=== PATIENT | male | born 1945 | race Caucasian/White ===

== ENCOUNTER 2021-02-17 15:58 | Emergency (ER) | payer MEDICARE, SELFPAY ==
[2021-02-17 16:14] VITALS: BP 140/70; PULSE 87; RESP 16; O2SAT 97; BMI 24.4
--- NOTE | 2021-02-17 16:17 | XR_ITS ---
PROCEDURE INFORMATION: Exam: XR Chest Exam date and time: 02/17/2021 4:17 PM Age: 75 years old Clinical indication: Cough TECHNIQUE: Imaging protocol: XR of the chest. Portable AP and lateral exam 4:56 p.m.. Three images received. Views: 2 views. COMPARISON: No relevant prior studies available. FINDINGS: Lungs: There are prominent patchy bilateral pulmonary airspace opacities which appear greatest in the right lower lobe and lateral periphery of the left lower lobe, correlate for pneumonia. Mild left pulmonary volume loss with slight elevation of the left diaphragm. Pleural spaces: Unremarkable as visualized. No significant pleural effusion. No pneumothorax. Heart/Mediastinum: Mildly enlarged cardiac silhouette, accentuated by portable AP technique. Vasculature: Calcified plaque in the aortic arch. Bones/joints: Spinal degenerative changes, multilevel disc disease and spondylosis. Mild chronic appearing compression deformities in the mid and lower thoracic spine. IMPRESSION: 1. Prominent patchy bilateral pulmonary airspace disease greatest in the lower and peripheral lungs, correlate for pneumonia. Less likely in this distribution would be pulmonary edema. 2. Additional nonemergency and chronic findings as above.
[2021-02-17 16:24] VITALS: BP 140/70; PULSE 87; RESP 16; TEMP 38.5; O2SAT 97; BMI 24.3
--- NOTE | 2021-02-17 17:23 | HMH.EDUTC ---
[facility] [place] Disposition Clinical Impression: Viral pneumonia, Viral syndrome Disposition: Still a Patient Condition on Discharge: Fair Instructions: Pneumonia-Adult Referrals: Tarik Quintanilla MD [Primary Care Provider] - Medical Decision Making - Medical Records Medical records reviewed: No: I reviewed the patient's medical records. - Emiliano Inquiry Pt receiving controlled substance: No Vital Signs: 02/17/21 16:14 02/17/21 16:24 Temperature 101.3 F H Temperature Source Oral Pulse Rate [Right] 87 87 Respiratory Rate 16 16 Blood Pressure [Right Arm] 140/70 140/70 Blood Pressure Mean [Right Arm] 93 93 Blood Pressure Source [Right Arm] Automatic Cuff Blood Pressure Position [Right Arm] Sitting 02 Sat by Pulse Oximetry 97 97 Oxygen Delivery Method Room Air Orders (Tests/Meds): ED MEDICATIONS Discontinued Medications Generic Name Dose Route Start Last Admin Trade Name Freq PRN Reason Stop Dose Admin Acetaminophen 975 mg 02/17/21 16:34 02/17/21 16:34 Acetaminophen 325mg Tab PO 02/17/21 16:35 975 mg ONCE ONE Administration ORDERS Category Date Time Status XR chest 2V Stat Exams 02/17/21 16:17 Taken Rapid PCR Covid and Flu A/B Stat Lab 02/17/21 17:14 Ordered Medical Decision Narrative: He was transferred to the ER per family request and because he has pneumonia. He is very weak. He normally walks, but he has been unable to walk to take care of himself since getting this sick. [facility] [place] HPI - General Stated complaint: fever weakness covid expsosure Time Seen by Provider: 02/17/21 17:23 Mode of Arrival: Wheelchair Source of Information: Relative Limitations: No Limitations Description of Symptoms (Recalled from Triage Doc. by RN): family member states pt has been running a fever, weak, loss of appetite and difficulty sleeping x4 days. direct exposure to covid. HEENT Symptoms (Recalled from RN notes): No Resp Symptoms (Recalled from RN notes): No Skin Symptoms (Recalled from RN notes): No MS Symptoms (Recalled from RN notes): No Functional Status (Recalled from RN notes): fever, loss of appetite and weakness - History of Present Illness Provider Complaint: His states that he has been sick for the past 2 weeks. His has had covid-19 so they assumed he had it too, but he hasn't been tested until he arrived here today. HE has a history of Parkingson's Disease. He has been running a fever up to 101.5 at home off and on for the past 10 days approx. - Related Data Home Medications Medication Instructions Recorded Confirmed Aspirin [Aspir 81] 81 mg PO DAILY 09/28/18 09/28/18 Glimepiride [Amaryl] 2 mg PO DAILY 09/28/18 09/28/18 Metformin HCl [Fortamet] 500 mg PO DAILY 09/28/18 09/28/18 Metoprolol Succinate [Toprol XL 150 mg PO DAILY 09/28/18 09/28/18 100mg tablet] Rosuvastatin Calcium [Crestor] 20 mg PO DAILY 09/28/18 09/28/18 dilTIAZem HCL [Cardizem ER 240mg 240 mg PO DAILY 09/28/18 09/28/18 Capsule] lisinopriL [Lisinopril 10mg Tab] 10 mg PO DAILY 09/28/18 09/28/18 Allergies Allergy/AdvReac Type Severity Reaction Status Date / Time No Known Allergies Allergy Verified 09/28/18 13:41 - Worker's Comp Is this a Worker's Comp case?: No [facility] History - Hepatitis A Screen Drug use history?: No High risk sexual behaviors?: No History of sexually transmitted infection?: No Currently employed?: No Childcare worker?: No Do you have indoor plumbing?: Yes Do you have electricity?: Yes Attestation statement:: This patient has been screened for Hepatitis A risk factors. I have reviewed the patient's past medical history: Yes Medical History: Reports:: Diabetes Mellitus Type 2 (MEDS), Hyperlipidemia, Hypertension Denies:: Diabetes Mellitus Type 1, Internal Pacemaker, Lung Disease, Seizures Other Medical History: Reports: Other Comment: Parkinson's, Obesity Laterality Cases: Right: Total Hip Replacement Other Surgeries: Yes: Colonoscopy. No: Pacema
[2021-02-17 18:10] LABS: Influenza A, PCR Not Detected (NotDetected); Influenza B, PCR Not Detected (NotDetected)
[2021-02-17 18:14] VITALS: BP 126/81; PULSE 76; RESP 16; O2SAT 96
[2021-02-17 18:27] LABS: Basophils % 0.5 % (0.1-2.0); Eosinophils % 0.1 % (0.1-12.0); Hematocrit 39.4 % (42.0-52.0); Lymphocytes # 0.3 K/mm3 (0.7-4.5); Mean Corpuscular HGB Conc 33.1 g/dL (31.8-35.4); Mean Corpuscular Volume 99.8 fl (80-94); Mean Platelet Volume 9.1 fl (7.4-10.4); Monocytes # 0.4 K/mm3 (0.1-1.0); Monocytes % 6.6 % (1.7-9.3); Neutrophils # 4.6 K/mm3 (1.8-7.8); Neutrophils % 86.7 % (37.0-80.0); Platelet Count 150 K/mm3 (142-424); Red Blood Count 3.94 M/mm3 (4.60-6.20); Red Cell Distribution Width 13.7 % (11.5-17.5); White Blood Count 5.3 K/mm3 (4.8-10.8)
[2021-02-17 18:31] LABS: MANUAL DIFFERENTIAL MANUAL DIFFERENTIAL (MANUAL DIFF)
[2021-02-17 18:32] LABS: Alanine Aminotransferase 12 U/L (12-78); Albumin Level 3.6 g/dl (3.5-5.0); Albumin/Globulin Ratio 1.1 (1.1-1.8); Alkaline Phosphatase 62 U/L (38-126); Anion Gap 12.3 mEq/L (5-15); Aspartate Amino Transferase 42 U/L (17-59); Bilirubin,Total 0.8 mg/dl (0.2-1.3); Blood Urea Nitrogen 31 mg/dl (9-20); Calcium 8.6 mg/dl (8.4-10.2); Carbon Dioxide 28 mmol/L (22.0-30.0); Chloride 106 mmol/L (98-107); Creatinine Clearance Estimated 40 mL/min (50-200); Estimated Glomerular Filt Rate 37 ml/min (>60); GFR (African American) 44 ML/MIN (>60); Globulin 3.3 g/dL (1.3-3.2); Glucose 61 mg/dl (74-100); Potassium 4.3 mmoL/L (3.5-5.1); Sodium 142 mmol/L (136-145); Total Protein,Serum 6.9 g/dl (6.3-8.2)
[2021-02-17 18:47] LABS: Coronavirus 19, PCR Detected (NotDetected)
[2021-02-17 19:02] LABS: Lymphocytes % 6 % (10-50); Monocytes % 6 % (2-9); Neutrophils % 88 % (42-76); Platelet Estimate Normal; RBC Morphology Normal; Total Cells Counted 100
[2021-02-17 19:06] VITALS: BP 118/63; PULSE 58; RESP 16; O2SAT 96
--- NOTE | 2021-02-17 19:08 | HMH.EDURI ---
ED Disposition Clinical Impression: Viral pneumonia, Viral syndrome Disposition: Home, Self-Care Condition on Discharge: Good Instructions: Pneumonia-Adult Additional Instructions: Please follow-up with your primary care physician in 2 to 3 days for further management. You tested positive for COVID 19. You have also been prescribed doxycycline to be taken as prescribed, however symptoms are likely related to COVID pneumonia. Please return back to the emergency department for any concerning symptoms such as difficulty breathing, chest pain, lethargy, inability to eat and drink or any other concerning symptoms. Prescriptions: Doxycycline Hyclate [Doxycycline 150mg Tablet] 150 mg PO DAILY #7 tab Referrals: Tarik Quintanilla MD [Primary Care Provider] - Time of Disposition: 19:55 - Critical Care Critical Care Time: No Attestation: On 02/17/21, the high probability of a clinically significant, sudden or life threatening deterioration of the following system(s) required my full and direct attention, intervention and personal management. The time I documented below is in addition to time spent performing reported procedures but includes the following listed in this critical care notation. Medical Decision Making - Emiliano Inquiry Pt receiving controlled substance: No Vital Signs: 02/17/21 16:14 02/17/21 16:24 02/17/21 18:14 Temperature 101.3 F H Temperature Source Oral Pulse Rate 76 Pulse Rate [Right] 87 87 Respiratory Rate 16 16 16 Blood Pressure 126/81 Blood Pressure [Right Arm] 140/70 140/70 Blood Pressure Mean [Right Arm] 93 93 Blood Pressure Source Automatic Cuff Blood Pressure Source [Right Arm] Automatic Cuff Blood Pressure Position Sitting Blood Pressure Position [Right Arm] Sitting 02 Sat by Pulse Oximetry 97 97 96 Oxygen Delivery Method Room Air Room Air 02/17/21 19:06 02/17/21 19:31 Temperature 98 F Temperature Source Oral Pulse Rate 58 L 72 Pulse Rate [Right] Respiratory Rate 16 16 Blood Pressure 118/63 120/71 Blood Pressure [Right Arm] Blood Pressure Mean [Right Arm] Blood Pressure Source Automatic Cuff Blood Pressure Source [Right Arm] Blood Pressure Position Sitting Blood Pressure Position [Right Arm] 02 Sat by Pulse Oximetry 96 Oxygen Delivery Method Room Air Room Air - Lab Data Lab Results 02/17/21 16:32: SARS-CoV-2 (PCR) Detected A, Influenza A Untype (PCR) Not detected, Influenza Type B (PCR) Not detected 02/17/21 18:12: WBC 5.3, RBC 3.94 L, Hgb 13.0 L, Hct 39.4 L, MCV 99.8 H, MCH 33.0 H, MCHC 33.1, RDW 13.7, Plt Count 150, MPV 9.1, Neut % (Auto) 86.7 H, Lymph % (Auto) 6.0 L, [place] % (Auto) 6.6, Eos % (Auto) 0.1, Baso % (Auto) 0.5, Neut # (Auto) 4.6, Lymph # (Auto) 0.3 L, [place] # (Auto) 0.4, Eos # (Auto) 0.0, Baso # (Auto) 0.0, Total Counted 100, Neutrophils % (Manual) 88 H, Lymphocytes % (Manual) 6 L, Monocytes % (Manual) 6, Platelet Estimate Normal, RBC Morphology Normal 02/17/21 18:12: Sodium 142, Potassium 4.3, Chloride 106, Carbon Dioxide 28, Anion Gap 12.3, BUN 31 H, Creatinine 1.80 H, Estimated Creat Clear 40, Estimated GFR 37 L, Est GFR ( Amer) 44 L, Glucose 61 L, Calcium 8.6, Total Bilirubin 0.8, AST 42, ALT 12, Alkaline Phosphatase 62, Total Protein 6.9, Albumin 3.6, Globulin 3.3 H, Albumin/Globulin Ratio 1.1 Result diagrams: 02/17/21 18:12 02/17/21 18:12 Orders (Tests/Meds): ED MEDICATIONS Discontinued Medications Generic Name Dose Route Start Last Admin Trade Name Freq PRN Reason Stop Dose Admin Acetaminophen 975 mg 02/17/21 16:34 02/17/21 16:34 Acetaminophen 325mg Tab PO 02/17/21 16:35 975 mg ONCE ONE Administration Medical Decision Narrative: Mr. Marin is a 75 year old male presenting from [facility] clinic for COVID exposure. Patient is febrile but hemodynamically stable on arrival, satting 94% on RA per baseline. Patient denies dyspnea, chest pain, lightheadness. Patient reports other than cough, co
[2021-02-17 19:31] VITALS: BP 120/71; PULSE 72; RESP 16; TEMP 36.6; O2SAT 96
== END 2021-02-17 19:39 | disposition home or self-care (01) ==
LOC: UTC 16:24 → ER 17:38
PROVIDERS: Nurse Practitioner Family; Emergency Provider Student in an Organized Health Care Education/Training Program; PCP Family Medicine
DX: J12.9 Viral pneumonia, unspecified (principal); B34.9 Viral infection, unspecified; E11.9 Type 2 diabetes mellitus without complications; E78.5 Hyperlipidemia, unspecified; I10 Essential (primary) hypertension; Z79.899 Other long term (current) drug therapy
CPT/HCPCS: 36415; 71046; 80053; 85007; 85025; 99282; C9803; U0003; U0005

== ENCOUNTER 2022-05-16 23:12 | Observation (INO) | payer MEDICARE, SELFPAY ==
[2022-05-16 23:22] LABS: POC Glucose,Bedside 78 (70-110)
[2022-05-16 23:29] VITALS: BP 143/74; PULSE 60; RESP 18; TEMP 36.8; O2SAT 97; BMI 29.8
[2022-05-16 23:31] VITALS: BP 143/71; PULSE 60; O2SAT 98
[2022-05-16 23:44] LABS: Basophils # 0.1 K/mm3 (0-0.2); Basophils % 0.7 % (0.1-2.0); Eosinophils # 0.1 K/mm3 (0.0-0.4); Eosinophils % 1.3 % (0.1-12.0); Hematocrit 43.7 % (42.0-52.0); Hemoglobin 14.2 g/dL (14.1-18.0); Lymphocytes # 0.7 K/mm3 (0.7-4.5); Lymphocytes % 8.6 % (10-50); Mean Corpuscular HGB Conc 32.5 g/dL (31.8-35.4); Mean Corpuscular Hemoglobin 32.8 pg (27.0-31.2); Mean Corpuscular Volume 100.8 fl (80-94); Mean Platelet Volume 7.6 fl (7.4-10.4); Monocytes # 0.9 K/mm3 (0.1-1.0); Monocytes % 11.6 % (1.7-9.3); Neutrophils % 77.9 % (37.0-80.0); Platelet Count 189 K/mm3 (142-424); Red Blood Count 4.34 M/mm3 (4.60-6.20); White Blood Count 7.8 K/mm3 (4.8-10.8)
[2022-05-16 23:50] LABS: Alanine Aminotransferase 9 U/L (12-78); Albumin Level 3.9 g/dl (3.5-5.0); Albumin/Globulin Ratio 1.3 (1.1-1.8); Alkaline Phosphatase 64 U/L (38-126); Anion Gap 7.7 mEq/L (5-15); Aspartate Amino Transferase 23 U/L (17-59); Bilirubin,Total 0.6 mg/dl (0.2-1.3); Blood Urea Nitrogen 30 mg/dl (9-20); Calcium 8.1 mg/dl (8.4-10.2); Carbon Dioxide 29 mmol/L (22.0-30.0); Chloride 108 mmol/L (98-107); Creatinine Clearance Estimated 61 mL/min (50-200); Estimated Glomerular Filt Rate 49 ml/min (>60); GFR (African American) 59 ML/MIN (>60); Globulin 3.1 g/dL (1.3-3.2); Glucose 63 mg/dl (74-100); Potassium 3.7 mmoL/L (3.5-5.1); Sodium 141 mmol/L (136-145)
[2022-05-16 23:55] LABS: POC Glucose,Bedside 70 (70-110)
[2022-05-16 23:55] LABS: Microscopic, Urine URINE MICROSCOPIC (MICROSCOPIC)
--- NOTE | 2022-05-16 23:55 | HMH.EDRECH ---
Discharge Plan Disposition Chief Complaint: Recheck/Abnormal Lab/Rx Clinical Impressions Clinical Impression: Hypoglycemia associated with type 2 diabetes mellitus, Parkinson disease, COVID-19, Chronic renal insufficiency Discharge ED Provider: Gilberto (ED)Yair Recheck HPI General Chief Complaint: Recheck/Abnormal Lab/Rx Stated Complaint: Hypoglycemia Time Seen by Provider: 05/16/22 23:56 Mode of Arrival: EMS Source of Information: Patient, Spouse, EMS and Medical Record Limitations: No Limitations Description of Symptoms (Recalled from ER Triage Doc. by RN): Pt arrives via ems. Per EMS, upon arrival pt was lethargic with a blood glucose of 37, given 200ml of d10, glucose level upon recheck was 189. Per patients , he has had covid (quarantine will be over tomorrow) and has not had an appetite since the diagnosis. Pt became confused tonight at approx 2130 after using the restroom and needed his grandsons help getting from the toilet to his bed so his grandson essentially had to carry him because his legs were weak. Per , they havent had a functioning glucometer in several weeks so they have not been monitoring it. states that he also has eaten less than normal today. History of Present Illness HPI narrative: pt with episode of change in mental status and had low glucose - pt is diabetic and has been using meds but has dec po intake as has covid-19 - also has weakness and parkinson Initial visit (ago): hour(s) Related Data Home Medications Medication Instructions Recorded Confirmed aspirin 81 mg tablet,delayed 81 mg PO DAILY HEALTH 09/28/18 05/16/22 release diltiazem HCl 240 mg 240 mg PO DAILY HEART. 09/28/18 05/16/22 capsule,extended release 24 hr glimepiride 2 mg tablet 2 mg PO DAILY SUGAR 09/28/18 05/16/22 lisinopril 10 mg tablet 10 mg PO DAILY BP 09/28/18 05/16/22 metformin 500 mg tablet,extended 500 mg PO DAILY SUGAR 09/28/18 05/16/22 release 24hr metoprolol succinate 100 mg 150 mg PO DAILY BP 09/28/18 05/16/22 tablet,extended release 24 hr rosuvastatin 20 mg tablet 20 mg PO DAILY Cholesterol 09/28/18 05/16/22 carbidopa 25 mg-levodopa 250 mg 1 tab PO TID parkinsons tremor 05/16/22 05/16/22 tablet quetiapine 25 mg tablet 25 mg PO HS Insomnia 05/16/22 05/16/22 Allergies Allergy/AdvReac Type Severity Reaction Status Date / Time No Known Allergies Allergy Verified 09/28/18 13:41 [facility] Disclaimer: The information contained in this section may have been updated after the patient was seen, as this information can be updated by other users. Social History Smoking Status: Never smoker alcohol intake: never substance use type: unknown current occupational status: other (unknown) Travel in the last 8 weeks: None caffeine: Yes ROS Obtained: Yes All systems reviewed & no additional complaints except as documented Physical Exam General General appearance: alert Head Head exam: normocephalic Eye Eye exam: Present PERRL and EOMI; Absent scleral icterus ENT ENT exam: Present mucous membranes dry Neck Neck exam: Present trachea midline Respiratory Respiratory exam: Present other (dec bs bilat ); Absent respiratory distress Cardiovascular Cardiovascular exam: Present regular rate, systolic murmur and +S4 Abdominal Exam Abdominal exam: Present soft Extremities Exam Extremities exam: Absent joint swelling Neurological Exam Neurological exam: Present alert and CN II-XII intact Skin Skin exam: Absent rash Medical Decision Making Medical Records Medical records reviewed: Yes I reviewed the patient's medical records. Emiliano Inquiry Pt receiving controlled substance: No Vital Signs: 05/16/22 23:29 05/16/22 23:31 05/17/22 00:01 Temperature 98.2 F Temperature Source Oral Pulse Rate 60 60 Pulse Rate [Apical] 60 Respiratory Rate 18 Blood Pressure 143/71 H 133/81 Blood Pressure [Right Arm] 143/74 H Blood Pressure Mean [Right Arm] 97 Blood Press
[2022-05-16 23:56] LABS: Appearance,Urine CLEAR (Clear); Bilirubin,Urine Negative (Negative); Blood, Urine TRACE-I (Negative); Color,Urine YELLOW (Yellow); Glucose,Urine (UA) Negative (Negative); Ketones,Urine Negative (Negative); Leukocyte Esterase,Urine Negative (Negative); Nitrate,Urine Negative (Negative); Protein,Urine 2+ (Negative); Specific Gravity, Urine >= 1.030 (1.005-1.030)
--- NOTE | 2022-05-16 23:57 | PC.NURSE ---
Patients blood glucose upon recheck was 70. Patient was given 4 peanut butter crackers and an orange juice upon arrival to ER.
[2022-05-17] VITALS (9 sets, daily range): BP systolic 120–170; BP diastolic 67–81; PULSE 57–85; RESP 16–21; TEMP 36.6–37.1; O2SAT 93–99; BMI 24.0
[2022-05-17 00:05] LABS: Influenza A, PCR Not Detected (NotDetected); Influenza B, PCR Not Detected (NotDetected)
[2022-05-17 00:13] LABS: Hemoglobin A1C 5.9 % (4.0-6.0)
[2022-05-17 00:22] LABS: RBC,Urine Occasional #/hpf (0-3); Squamous Epithelial Cell,Urine Occasional #/hpf (0-5); WBC,Urine Occasional #/hpf (0-3)
--- NOTE | 2022-05-17 00:26 | PC.NURSE ---
Patient was given a pepsi per his request to increase blood glucose. Patient finished 8oz of regular pepsi at approx 0015.
[2022-05-17 00:30] LABS: POC Glucose,Bedside 69 (70-110)
[2022-05-17 00:57] LABS: Coronavirus 19, PCR Detected (NotDetected)
--- NOTE | 2022-05-17 01:29 | PC.NURSE ---
Patients blood glucose rechecked. fsbg 80. Patient remains alert oriented and stable. at bedside.
[2022-05-17 01:35] LABS: POC Glucose,Bedside 80 (70-110)
[2022-05-17 02:06] LABS: POC Glucose,Bedside 71 (70-110)
--- NOTE | 2022-05-17 02:06 | PC.NURSE ---
Dr. Macias s/w Dr. Noel for admission. teaching supervisor notified for bed assignment.
--- NOTE | 2022-05-17 02:14 | XR_ITS ---
PROCEDURE INFORMATION: Exam: XR Chest Exam date and time: 05/17/2022 2:34 AM Age: 76 years old Clinical indication: Condition or disease; Lung condition and disease; Pneumonia; Additional info: Covid+ TECHNIQUE: Imaging protocol: Radiologic exam of the chest. Views: 1 view. COMPARISON: CR XR CHEST 2V 02/17/2021 4:54 PM FINDINGS: Lungs: Minor linear and patchy opacities in the left lower lobe are improved since prior exam. The lungs appear otherwise clear. No focal areas of consolidation. Pleural spaces: No pleural effusions or appreciable adenopathy. Negative for pneumothorax. Heart/Mediastinum: Cardiac silhouette and pulmonary vasculature are within range of normal. The aortic arch demonstrates mild to moderate atherosclerotic calcification. Bones/joints: There is no evidence of acute fracture. The thoracic spine demonstrates mild degenerative changes at multiple levels. Degenerative changes are incompletely visualized involving the shoulders. Decrease in the acromial humeral interval bilaterally raises the question of rotator cuff pathology. IMPRESSION: Minor linear and patchy opacities in the left lower lobe are improved since prior exam. The lungs appear otherwise clear.
--- NOTE | 2022-05-17 02:16 | PC.NURSE ---
placing bridge floor orders for pt @ this time.
--- NOTE | 2022-05-17 02:22 | PC.NURSE ---
called report to Elizabeth HART
--- NOTE | 2022-05-17 02:28 | PC.NURSE ---
Elizabeth RN is checked on changing pt's room to a negative pressure/covid room
--- NOTE | 2022-05-17 02:38 | PC.NURSE ---
med/surg here to transport pt to 2nd nh via wheelchair
--- NOTE | 2022-05-17 02:43 | PC.NURSE ---
PT ARRIVED TO FLOOR AT THIS TIME
[2022-05-17 06:21] LABS: POC Glucose,Bedside 50 (70-110)
[2022-05-17 06:21] LABS: POC Glucose,Bedside 58 (70-110)
[2022-05-17 06:21] LABS: POC Glucose,Bedside 62 (70-110)
[2022-05-17 06:56] LABS: Basophils % 0.3 % (0.1-2.0); Eosinophils # 0.1 K/mm3 (0.0-0.4); Eosinophils % 2.1 % (0.1-12.0); Hematocrit 39.4 % (42.0-52.0); Hemoglobin 12.8 g/dL (14.1-18.0); Lymphocytes % 15.9 % (10-50); Mean Corpuscular HGB Conc 32.4 g/dL (31.8-35.4); Mean Corpuscular Volume 101.7 fl (80-94); Mean Platelet Volume 7.4 fl (7.4-10.4); Monocytes # 0.8 K/mm3 (0.1-1.0); Monocytes % 12.8 % (1.7-9.3); Neutrophils # 4.3 K/mm3 (1.8-7.8); Neutrophils % 68.9 % (37.0-80.0); Platelet Count 164 K/mm3 (142-424); Red Blood Count 3.87 M/mm3 (4.60-6.20); Red Cell Distribution Width 13.8 % (11.5-17.5); White Blood Count 6.3 K/mm3 (4.8-10.8)
[2022-05-17 06:59] LABS: Chloride 109 mmol/L (98-107)
[2022-05-17 07:00] LABS: Potassium 4.2 mmoL/L (3.5-5.1); Sodium 142 mmol/L (136-145)
[2022-05-17 07:03] LABS: Anion Gap 9.2 mEq/L (5-15); Blood Urea Nitrogen 28 mg/dl (9-20); Carbon Dioxide 28 mmol/L (22.0-30.0); Creatinine Clearance Estimated 53 mL/min (50-200); Estimated Glomerular Filt Rate 53 ml/min (>60); GFR (African American) 65 ML/MIN (>60); Glucose 53 mg/dl (74-100)
--- NOTE | 2022-05-17 07:44 | HMH.PHAINT1 ---
Pharmacy Intervention Comments: MEDICATION RECONCILIATION COMPLETED ON PATIENT USING EXTERNAL FILL HISTORY FROM PHARMACY. -VISHAL GILLETTE, [place]
--- NOTE | 2022-05-17 08:02 | EXP.HP ---
History of Present Illness *Admission Date: 06/13/22 *Reason for visit:: Hypoglycemia; COVID *History of present illness: Mr. Pedroza is a 76-year-old male with a history of hypertension, PSVT, diabetes, chronic kidney disease, hyperlipidemia and Parkinson's disease who began feeling ill last week. He had a home positive COVID test on 05/13/2022. He did call the office of [facility] yesterday and water Paxlovid. He did not start this medicine. According to the he has not had an appetite since last week. He has been eating much less and drinking poorly. He became confused. They had no means of testing his blood sugar at home. He was unable to get up from the toilet on his own and essentially had to be carried to bed by his grandson because his legs were too weak to walk. He has been taking his diabetes medicine which includes glipizide 2 mg daily and metformin 500 mg daily. EMS was called and blood sugar was found to be 37. He was given 200 mL of D10 W with blood sugar recheck at 189. He was evaluated in the emergency room and then admitted for further evaluation and treatment and monitoring of his blood sugar. Repeat blood sugar was 78, BUN was 30 with a creatinine of 1.4. A1c was noted to be 5.9. He did test positive for COVID. He did have a chest x-ray which showed moderate lineal and patchy opacities in the left lower lobe improved since prior exam on 02/17/2021. The lungs appeared otherwise clear. Patient states he arrived to his room around 2:30 AM. He has slept little. Blood sugars remain low at 71, 50, 62, and 58,. He is on D5 one half normal saline at 100 an hour at present. He denies any pain or shortness of breath. He is hungry and is eating his breakfast. [facility] Disclaimer: The information contained in this section may have been updated after the patient was seen, as this information can be updated by other users. Medical History (Updated 05/17/22 @ 08:34 by Ronn Noel MD) Chronic renal insufficiency Diabetes Hyperlipidemia Hypertension Insomnia Parkinsons disease Stage 3a chronic kidney disease (CKD) Viral pneumonia Viral syndrome Surgical History (Updated 05/17/22 @ 03:50 by Elizabeth Fisher RN) Hip joint replacement status Family History (Updated 05/17/22 @ 03:50 by Elizabeth Fisher RN) Colon cancer Diabetes Social History (Updated 05/17/22 @ 03:51 by Elizabeth Fisher RN) Smoking Status: Never smoker alcohol intake: never substance use type: unknown current occupational status: other (unknown) Travel in the last 8 weeks: None caffeine: Yes Review of Systems Constitutional Constitutional: Denies fever(s), Denies frequent falls, Denies headache(s) and Reports poor appetite Eyes Eyes: Denies change in vision ENT Ears, Nose, Mouth, and Throat: Denies otalgia, Denies headache(s) and Denies sore throat *Cardiovascular Cardiovascular: Denies chest pain and Denies dyspnea *Respiratory Respiratory: Reports cough and Denies dyspnea *Gastrointestinal Gastrointestinal: Denies heartburn, Denies loose stools, Denies nausea and Denies vomiting *Genitourinary Genitourinary: Denies difficulty urinating *Musculoskeletal Musculoskeletal: Reports abnormal gait, Reports muscle weakness and Reports myalgias *Neurologic Neurologic: Reports abnormal gait, Denies abnormal speech, Reports confusion, Denies convulsions, Denies frequent falls and Denies headache(s) Psychiatric Psychiatric: Reports confusion Meds Home Medications and Allergies Home Medications Medication Instructions Recorded Confirmed Type aspirin 81 mg tablet,delayed 81 mg PO DAILY HEART HEALTH 09/28/18 05/16/22 History release diltiazem HCl 240 mg 240 mg PO DAILY HEART RATE 09/28/18 05/16/22 History capsule,extended release 24 hr glimepiride 2 mg tablet 2 mg PO DAILY Diabetes 09/28/18 05/16/22 History lisinopril 10 mg tablet 10 mg PO DAILY Hypertension 09/28/18 05/16/22 History metform
[2022-05-17 09:22] LABS: POC Glucose,Bedside 60 (70-110)
[2022-05-17 11:45] LABS: POC Glucose,Bedside 51 (70-110)
[2022-05-17 12:37] LABS: POC Glucose,Bedside 68 (70-110)
[2022-05-17 14:16] LABS: POC Glucose,Bedside 56 (70-110)
[2022-05-17 16:13] LABS: POC Glucose,Bedside 99 (70-110)
[2022-05-17 18:57] LABS: POC Glucose,Bedside 69 (70-110)
[2022-05-17 19:48] LABS: POC Glucose,Bedside 80 (70-110)
[2022-05-17 23:31] LABS: POC Glucose,Bedside 79 (70-110)
[2022-05-17 23:31] LABS: POC Glucose,Bedside 78 (70-110)
[2022-05-18] VITALS: BP 139/79; PULSE 74; RESP 18; TEMP 37.2; O2SAT 95
[2022-05-18 01:15] LABS: POC Glucose,Bedside 96 (70-110)
[2022-05-18 04:00] VITALS: BP 151/78; PULSE 65; RESP 22; TEMP 37.1; O2SAT 93; BMI 24.7
--- NOTE | 2022-05-18 05:29 | PC.NURSE ---
Pt has had no complaints this shift. FSBS monitored closely. Pt given several snacks t/o the night.
[2022-05-18 07:07] LABS: Basophils % 0.7 % (0.1-2.0); Eosinophils # 0.2 K/mm3 (0.0-0.4); Eosinophils % 2.6 % (0.1-12.0); Hematocrit 40.8 % (42.0-52.0); Hemoglobin 13.2 g/dL (14.1-18.0); Lymphocytes % 16.4 % (10-50); Mean Corpuscular HGB Conc 32.4 g/dL (31.8-35.4); Mean Corpuscular Hemoglobin 32.9 pg (27.0-31.2); Mean Corpuscular Volume 101.5 fl (80-94); Mean Platelet Volume 7.7 fl (7.4-10.4); Monocytes # 0.7 K/mm3 (0.1-1.0); Monocytes % 11.6 % (1.7-9.3); Neutrophils # 4.3 K/mm3 (1.8-7.8); Neutrophils % 68.7 % (37.0-80.0); Platelet Count 187 K/mm3 (142-424); Red Blood Count 4.02 M/mm3 (4.60-6.20); Red Cell Distribution Width 13.7 % (11.5-17.5); White Blood Count 6.2 K/mm3 (4.8-10.8)
[2022-05-18 07:08] LABS: Chloride 107 mmol/L (98-107); Potassium 4.2 mmoL/L (3.5-5.1); Sodium 140 mmol/L (136-145)
[2022-05-18 07:11] LABS: Anion Gap 9.2 mEq/L (5-15); Blood Urea Nitrogen 19 mg/dl (9-20); Calcium 8.1 mg/dl (8.4-10.2); Carbon Dioxide 28 mmol/L (22.0-30.0); Creatinine Clearance Estimated 59 mL/min (50-200); Estimated Glomerular Filt Rate 59 ml/min (>60); GFR (African American) 71 ML/MIN (>60); Glucose 115 mg/dl (74-100)
[2022-05-18 07:37] LABS: POC Glucose,Bedside 102 (70-110)
[2022-05-18 07:37] LABS: POC Glucose,Bedside 101 (70-110)
[2022-05-18 07:42] VITALS: BP 145/79; PULSE 71; RESP 18; TEMP 36.9; O2SAT 98
--- NOTE | 2022-05-18 07:54 | EXP.PN ---
Subjective *Date: 05/18/22 *Time: 08:50 Interval history: Eating well. Sleeping well. Was out of the bed and sit in chair yesterday and enjoyed. Blood sugars. At 115 this morning blood chemistries are good. CBC with a normal white count of 6200 hemoglobin of 13.2 and hematocrit of 40.8. Exam Data for Last 24 hours Vital signs and Labs for Last 24 Hours: Temp Pulse Resp BP Pulse Ox 98.5 F 71 18 145/79 H 98 05/18/22 07:42 05/18/22 07:42 05/18/22 07:42 05/18/22 07:42 05/18/22 07:42 Laboratory Results - last 24 hr 05/17/22 09:10: POC Glucose 60 L 05/17/22 11:37: POC Glucose 51 L 05/17/22 12:30: POC Glucose 68 L 05/17/22 14:07: POC Glucose 56 L 05/17/22 16:02: POC Glucose 99 05/17/22 18:50: POC Glucose 69 L 05/17/22 19:39: POC Glucose 80 05/17/22 20:32: POC Glucose 78 05/17/22 23:11: POC Glucose 79 05/18/22 01:09: POC Glucose 96 05/18/22 03:14: POC Glucose 101 05/18/22 06:38: WBC 6.2, RBC 4.02 L, Hgb 13.2 L, Hct 40.8 L, MCV 101.5 H, MCH 32.9 H, MCHC 32.4, RDW 13.7, Plt Count 187, MPV 7.7, Neut % (Auto) 68.7, Lymph % (Auto) 16.4, [place] % (Auto) 11.6 H, Eos % (Auto) 2.6, Baso % (Auto) 0.7, Neut # (Auto) 4.3, Lymph # (Auto) 1.0, [place] # (Auto) 0.7, Eos # (Auto) 0.2, Baso # (Auto) 0.0 05/18/22 06:38: Sodium 140, Potassium 4.2, Chloride 107, Carbon Dioxide 28, Anion Gap 9.2, BUN 19 D, Creatinine 1.20, Estimated Creat Clear 59, Estimated GFR 59, Est GFR ( Amer) 71, Glucose 115 H, Calcium 8.1 L 05/18/22 07:29: POC Glucose 102 I & O for Last 24 hours: Intake & Output 05/15/22 05/16/22 05/17/22 05/18/22 11:59 11:59 11:59 11:59 Intake Total 240 / 240 3120 / 3120 Output Total 150 / 150 2400 / 2400 Balance 90 / 90 720 / 720 Weight 177 lb 7.554 oz 182 lb 11.2 oz Microbiology Reports for the Last 24 Hours: Microbiology 05/17/22 Unknown Sputum - Expectorated Sputum Gram Stain - Final Constitutional Constitutional: no acute distress Comments: Sitting up in the bed eating his breakfast. *Routine Respiratory Exam Respiratory: Present CTA bilaterally (Anteriorly and posteriorly) *Routine Cardiovascular Exam Cardiovascular: Present RRR *Routine Extremities Exam Extremities: Absent edema *Routine Neurological Exam Neurological: Present alert, oriented X3 and tremors Assessment and Plan *Assessment and plan (1) Hypoglycemia associated with type 2 diabetes mellitus: Status: Acute Category: Medical Code(s): E11.649 - Type 2 diabetes mellitus with hypoglycemia without coma (2) COVID-19: Status: Acute Category: Medical Code(s): U07.1 - COVID-19 (3) JYOTI (acute kidney injury): Status: Acute Category: Medical Code(s): N17.9 - Acute kidney failure, unspecified (4) Stage 3a chronic kidney disease (CKD): Status: Acute Category: Medical Code(s): N18.31 - Chronic kidney disease, stage 3a (5) Anemia: Status: Acute Category: Medical Code(s): D64.9 - Anemia, unspecified (6) Parkinson disease: Status: Acute Category: Medical Code(s): G20 - Parkinson's disease Plan Blood sugars have ranged from 80, 78, 79, 96, and 101. We will decrease IV fluids. Possibly discharge today. Dr. Noel entry - Patient has improved, renal function is normal, he is tolerating a regular diet. OK to discharge home today, will stop all diabetic medications, plan office follow up with Dr. Quintanilla next week.
[2022-05-18 10:39] LABS: POC Glucose,Bedside 110 (70-110)
--- NOTE | 2022-05-19 14:37 | CARE MANAGER ---
Spoke with patient for post-discharge phone interview, no issues noted.
--- NOTE | 2022-05-22 22:58 | EXP.DC.SUM ---
General Admission date:: 05/17/22 Discharge date: 05/18/22 HPI HPI HPI: Mr. Pedroza is a 76-year-old male with a history of hypertension, PSVT, diabetes, chronic kidney disease, hyperlipidemia and Parkinson's disease who began feeling ill last week. He had a home positive COVID test on 05/13/2022. He did call the office of [facility] yesterday and water Paxlovid. He did not start this medicine. According to the he has not had an appetite since last week. He has been eating much less and drinking poorly. He became confused. They had no means of testing his blood sugar at home. He was unable to get up from the toilet on his own and essentially had to be carried to bed by his grandson because his legs were too weak to walk. He has been taking his diabetes medicine which includes glipizide 2 mg daily and metformin 500 mg daily. EMS was called and blood sugar was found to be 37. He was given 200 mL of D10 W with blood sugar recheck at 189. He was evaluated in the emergency room and then admitted for further evaluation and treatment and monitoring of his blood sugar. Repeat blood sugar was 78, BUN was 30 with a creatinine of 1.4. A1c was noted to be 5.9. He did test positive for COVID. He did have a chest x-ray which showed moderate lineal and patchy opacities in the left lower lobe improved since prior exam on 02/17/2021. The lungs appeared otherwise clear. Patient states he arrived to his room around 2:30 AM. He has slept little. Blood sugars remain low at 71, 50, 62, and 58,. He is on D5 one half normal saline at 100 an hour at present. He denies any pain or shortness of breath. He is hungry and is eating his breakfast. Hospital Course Hospital Course Hospital Course: The patient was continued on IV fluids and blood sugar monitoring. By 05/18/22, he was eating well and sleeping well. He was able to get out of bed and sit in a chair. His glucose and blood chemistries were better. His CBC showed a normal white count. It was felt he was stable to be discharged home and will stop all diabetic medicines as his glucose had been low. He will follow up with Dr. Quintanilla in 1 week. Exam Data for Last 24 hours Vital signs and Labs for Last 24 Hours: Temp Pulse Resp BP Pulse Ox 98.5 F 71 18 145/79 H 98 05/18/22 07:42 05/18/22 07:42 05/18/22 07:42 05/18/22 07:42 05/18/22 07:42 Narrative: Constitutional Constitutional: no acute distress *Routine HEENT Exam Head: Present normocephalic and atraumatic Eye: Present PERRL; Absent conjunctival icterus, scleral injection or conjunctivae pink ENT: Present mucous membranes dry and oropharynx clear *Routine Neck Exam Neck: Present supple; Absent carotid bruit, lymphadenopathy or thyromegaly *Routine Respiratory Exam Respiratory: Present CTA bilaterally *Routine Cardiovascular Exam Cardiovascular: Present RRR *Routine Abdominal Exam Abdominal: Present soft and normoactive bowel sounds; Absent tenderness or distended *Routine Rectal Exam Rectal:: deferred *Routine Genitalia Exam Genitalia:: deferred *Routine Extremities Exam Extremities: Absent edema or calf tenderness *Routine Neurological Exam Neurological: Present alert, oriented X3 and tremors DS: Diagnosis Discharge Diagnosis (1) Hypoglycemia associated with type 2 diabetes mellitus: Status: Acute (2) COVID-19: Status: Acute (3) JYOTI (acute kidney injury): Status: Acute (4) Stage 3a chronic kidney disease (CKD): Status: Acute (5) Anemia: Status: Acute (6) Parkinson disease: Status: Acute Meds Home Medications and Allergies Home Medications Medication Instructions Recorded Confirmed Type aspirin 81 mg tablet,delayed 81 mg PO DAILY HEART HEALTH 09/28/18 05/16/22 History release diltiazem HCl 240 mg 240 mg PO DAILY HEART RATE 09/28/18 05/16/22 History capsule,extended release 24 hr lisinopril 10 mg tablet 10 mg PO DAILY Hypertension 09/28
== END 2022-05-18 10:55 | disposition home or self-care (01) ==
LOC: ER 23:18 → 2ND 05-17 02:33
PROVIDERS: Admitting Provider Family Medicine; Emergency Provider Emergency Medicine; PCP Family Medicine; Visit Provider Family Medicine
DX: U07.1 COVID-19 (principal); E11.649 Type 2 diabetes mellitus with hypoglycemia without coma; N17.9 Acute kidney failure, unspecified; N18.31 Chronic kidney disease, stage 3a; D64.9 Anemia, unspecified; G20 Parkinson's disease; Z79.84 Long term (current) use of oral hypoglycemic drugs; Z79.899 Other long term (current) drug therapy; E11.22 Type 2 diabetes mellitus with diabetic chronic kidney disease; I12.9 Hypertensive chronic kidney disease with stage 1 through stage 4 chronic kidney disease, or unspecified chronic kidney disease
CPT/HCPCS: G0378; 36415; 71045; 80048; 80053; 81001; 82962; 83036; 85025; 87070; 87205; 99285; C9803; U0003; U0005

== ENCOUNTER 2023-06-29 10:12 | Outpatient (CLI) | payer MEDICARE, SELFPAY ==
[2023-06-29 10:20] LABS: Microscopic, Urine URINE MICROSCOPIC (MICROSCOPIC)
[2023-06-29 10:52] LABS: Appearance,Urine CLEAR (Clear); Blood, Urine 1+ (Negative); Color,Urine YELLOW (Yellow); Glucose,Urine (UA) Negative (Negative); Ketones,Urine Negative (Negative); Leukocyte Esterase,Urine 2+ (Negative); Nitrate,Urine POSITIVE (Negative); Protein,Urine 2+ (Negative); Specific Gravity, Urine 1.025 (1.005-1.030); Urobilinogen,Urine 0.2 EU/dl (0.2)
[2023-06-29 11:01] LABS: Bilirubin,Urine Negative (Negative)
[2023-06-29 11:18] LABS: Bacteria,Urine Trace /lpf; Squamous Epithelial Cell,Urine Occasional #/hpf (0-5); WBC,Urine TNTC #/hpf (0-3)
== END 2023-06-29 23:59 ==
LOC: LAB.DROPOF 10:13
PROVIDERS: PCP Family Medicine; Visit Provider Family Medicine
DX: R39.9 Unspecified symptoms and signs involving the genitourinary system (principal); N39.0 Urinary tract infection, site not specified; B96.4 Proteus (mirabilis) (morganii) as the cause of diseases classified elsewhere
CPT/HCPCS: 81001; 87086